=== PATIENT | female | born 1975 | race Caucasian/White ===

== ENCOUNTER 2018-03-31 12:48 | Emergency (ER) | payer OTHER ==
[2018-03-31 13:33] LABS: Bilirubin Negative (Negative); Blood, Urine Negative (Negative); Clarity Clear (Clear); Glucose, Urine (Dipstick) Negative (Negative); Leukocyte Negative (Negative); Nitrite Negative (Negative); Protein, Urine (Dipstick) Negative (Neg-Trace)
[2018-03-31 13:34] LABS: Pregnancy Test - Urine (BHCG) Negative (Negative); Pregu Control Background? CLEAR/WHITE (CLR/WHITE); Pregu Control Bar Appear? YES (CONTROL BAR)
[2018-03-31 13:41] LABS: Amphetamine Detected (NotDetected); Barbiturates Screen Not Detected (NotDetected); Benzodiazepine Screen Not Detected (NotDetected); Cocaine Metabolite Screen Not Detected (NotDetected); Methadone Not Detected (NotDetected); Methamphetamine Not Detected (NotDetected); Opiate Screen Not Detected (NotDetected); Oxycodone Screen Not Detected (NotDetected); Phencyclidine (PCP) Not Detected (NotDetected); THC/Cannabinoid Screen Detected (NotDetected); Tricyclic Screen Not Detected (NotDetected)
[2018-03-31 13:42] LABS: Medtox Control Line Valid? VALID (VALID)
[2018-03-31 13:52] LABS: #Eosinphils 0.2 thou/uL (0.0-0.7); #Lymphocytes 1.4 thou/uL (1.20-3.40); #Monocytes 0.5 thou/uL (0.11-0.59); #Neutrophils 3.9 thou/uL (1.40-6.50); %Basophils 0.4 % (0.0-1.0); %Eosinophils 2.6 % (0.0-10.0); %Lymphocytes 23.3 % (21.0-51.0); %Monocytes 8.2 % (0.0-10.0); %Neutrophils 65.5 % (42.0-75.0); Hemoglobin 12.8 g/dL (12.0-16.0); Mean Corpuscular HGB CONC 31.8 g/dL (32.0-36.0); Mean Corpuscular Hemoglobin 26.6 pg (27.0-31.0); Mean Corpuscular Volume 83.5 fL (78.0-98.0); Mean Platelet Volume 9.4 fL (7.4-10.4); Platelet Count 196 thou/uL (130-400); RBC Distribution Width 14.5 % (11.5-14.5); Red Blood Cell (RBC) Count 4.82 mill/uL (4.20-5.40); White Blood Cell (WBC) Count 5.9 thou/uL (4.8-10.8)
[2018-03-31 14:09] LABS: Anion Gap 15 mmol/L (10-20); BUN (Urea Nitrogen) 13 mg/dL (7.0-18.7); Calc. Creatinine Clearance 0 mL/min (70-130); Calcium 9.5 mg/dL (7.8-10.44); Carbon Dioxide 25 mmol/L (22-29); Chloride 102 mmol/L (98-107); Estimated GFR-MDRD 88; Glucose 83 mg/dL (70-105); Potassium 4.3 mmol/L (3.5-5.1); Sodium 138 mmol/L (136-145)
[2018-03-31 14:13] LABS: CKMB 0.5 ng/mL (0-6.6); Troponin I 0.053 ng/mL (< 0.028)
--- NOTE | 2018-03-31 15:29 | CT ---
BRAIN CT WITHOUT IV CONTRAST 03/31/18 HISTORY: 42-year-old female with altered mental status. No focal mass or midline shift. No intra or extra-axial hemorrhage. Sinuses and mastoids are clear. T here is a focal somewhat fat density circumscribed right frontal anterior scalp mass or fullness. IMPRESSION: No acute intracranial process. No mass or bleed. Focal circumscribed fat density soft tissue fullness or mass overlying the right posterior frontal bone. POS: SHADE
== END 2018-03-31 14:05 ==
LOC: MADERS 12:48
DX: G62.9 Polyneuropathy, unspecified (principal); I10 Essential (primary) hypertension
CPT/HCPCS: 36415; 70450; 80048; 80306; 81003; 81025; 82553; 84484; 85025

== ENCOUNTER 2020-07-06 14:17 | Emergency (ER) | payer MEDICAID, OTHER, SELFPAY ==
[2020-07-06] MEDS ORDERED: Cephalexin 500 MG CAP ONE (15:07)
[2020-07-06] MEDS ORDERED: Ketorolac Tromethamine 60 MG/2 ML VIAL ONE (15:07)
--- NOTE | 2020-07-06 15:18 | RAD ---
Exam:3 views left ankle HISTORY: Pain COMPARISON: None FINDINGS: Preserved joint spaces. Intact ankle mortise. Mild lateral soft tissue swelling. No fractur e. IMPRESSION: Lateral soft tissue swelling, without fracture
--- NOTE | 2020-07-06 15:22 | RAD ---
Exam:3 views left foot HISTORY: Pain. Injury COMPARISON: None FINDINGS: Lisfranc alignment is maintained. Preserved joint spaces. No fracture, cortical irregularit y or periosteal reaction. Mild spurring of the calcaneus at the plantar aponeurosis insertion site. IMPRESSION: No fracture.
== END 2020-07-06 15:44 | disposition home or self-care (01) ==
LOC: MADERS 14:17
DX: S93.402A Sprain of unspecified ligament of left ankle, initial encounter (principal); L03.113 Cellulitis of right upper limb; I10 Essential (primary) hypertension; X50.1XXA Overexertion from prolonged static or awkward postures, initial encounter
CPT/HCPCS: 96372; J1885

== ENCOUNTER 2020-08-21 19:56 | Emergency (ER) | payer SELFPAY ==
[2020-08-21] MEDS ORDERED: Ketorolac Tromethamine 30 MG/ML VIAL ONE (21:28)
[2020-08-21] MEDS ORDERED: HYDROcodone/Acetaminophen 5/325 mg Tablet ONE (21:28)
== END 2020-08-21 22:06 | disposition home or self-care (01) ==
LOC: MADERS 19:56
DX: G89.29 Other chronic pain (principal); M25.511 Pain in right shoulder; I10 Essential (primary) hypertension; J44.9 Chronic obstructive pulmonary disease, unspecified; Z79.899 Other long term (current) drug therapy
CPT/HCPCS: 96372; 99283; J1885